=== PATIENT | female | born 1950 | race Caucasian/White ===

== ENCOUNTER → 2020-12-08 | Outpatient (CLI) | payer OTHER, MEDICARE ==
[~2020-12-08] MED LIST: ASA81BEC PO; ASPIRIN325 PO; CELEBREX 200 M200 M1 PO; CIPRO500 MG PO; COLACE100 MG PO; FISH OIL 1,0001 EAC9 PO; FLEXERIL PO; FLOMAX0.4 MG PO; IRON325 M1 PO; LIPITOR 20 MG T20 M1 PO; LISINOPRIL10 MG PO; LOSARTAN POTASS50 MG PO; NEXIUM40 MG PO; NORCO 5-325 TA1 EACH PO; OLANZAPINE5 M1 PO; OXYCONTIN10 M1 PO; PERCOCET 10-321 EAC1 PO; PERCOCET PO; POTABA500 M1 PO; PREGABALIN75 MG PO; PROTONIX 20 MG20 MG PO; REMERON15 M2 PO; SPIRONOLACTONE100 M1 PO; SYMBICORT160 MCG/4. INH; VITAMIN B-121000 MC2 PO; VITAMIN D400 UNIT PO; ZESTORETIC 20-1 EAC3 PO; ZOLOFT 50 MG TA50 MG PO
== END | disposition home or self-care (01) ==
LOC: GI 06:33
PROVIDERS: ATTEND Specialist
DX: D64.9 Anemia, unspecified (principal); Z79.899 Other long term (current) drug therapy; Z88.8 Allergy status to other drugs, medicaments and biological substances